=== PATIENT | female | born 1990 | race African-American/Black ===

== ENCOUNTER 2018-12-02 08:25 | Emergency (ER) | payer OTHER ==
[2018-12-02 08:34] VITALS: BP 124/76; PULSE 95; TEMP 98.6; BMI 22.1
[2018-12-02] MEDS ORDERED: CYCLOBENZAPRINE HCL 10 MG TABLET (FP) PO ONE (08:47)
[2018-12-02] MEDS ORDERED: CYCLOBENZAPRINE HCL 10 MG TABLET (FP) ONE (08:51)
--- NOTE | 2018-12-02 08:54 | PDOC ---
History of Present Illness - General Chief Complaint: Head/Neck problem Stated Complaint: Head/Neck problem Time Seen by Provider: 12/02/18 08:47 History Source: Patient Exam Limitations: No Limitations Past History - Past Medical History Allergies/Adverse Reactions: Allergies Allergy/AdvReac Type Severity Reaction Status Date / Time amoxicillin Allergy inflammatio Verified 12/02/18 08:50 n Home Medications: Ambulatory Orders Cyclobenzaprine HCl [Flexeril 10 mg] 10 mg PO TID PRN #15 tablet 12/02/18 COPD: No - Immunization History Immunization Up to Date: Yes - Suicide/Smoking/Psychosocial Hx Smoking History: Never smoked Information on smoking cessation initiated: No Hx Alcohol Use: No Drug/Substance Use Hx: No *Physical Exam - Vital Signs Last Vital Signs Temp Pulse Resp BP Pulse Ox 98.6 F 95 H 17 124/76 7 L 12/02/18 08:30 12/02/18 08:30 12/02/18 08:30 12/02/18 08:30 12/02/18 08:30 - Physical Exam General Appearance: No: Apparent Distress HEENT: positive: GLORIA Neck: positive: Other (neck tilted to the left, +muscle spasms, pain with turning neck laterally (to the right), no cspine TTP) Respiratory/Chest: positive: Lungs Clear, Normal Breath Sounds. negative: Respiratory Distress Cardiovascular: positive: Regular Rhythm, Regular Rate, S1, S2. negative: Murmur Gastrointestinal/Abdominal: positive: Normal Bowel Sounds, Soft. negative: Tender, Distended, Guarding, Rebound Neurologic: positive: cake puller II-XII NML intact, Fully Oriented, Alert, Normal Mood/ Affect, Motor Strength 5/5 Moderate Sedation - Procedure Monitoring Vital Signs: Procedure Monitoring Vital Signs Temperature 98.6 F 12/02/18 08:30 Pulse Rate 95 H 12/02/18 08:30 Respiratory Rate 17 12/02/18 08:30 Blood Pressure 124/76 12/02/18 08:30 O2 Sat by Pulse Oximetry (%) 7 L 12/02/18 08:30 Medical Decision Making - Medical Decision Making 28 y/o F hx of prolactinoma (has improved now) presents with waking up with neck pain yesterday morning with pain on turning neck to right. Denies trauma. Took 600 mg of Motrin yesterday and tried hot showers without much relief of symptoms. Took another 800 mg of Motrin today prior to coming in. Denies headache, sob, cp, n/v, visual/gait changes, numbness/tingling/weakness of extremities PE consistent with torticollis Patient given Flexeril 12/02/18 08:54 *DC/Admit/Observation/Transfer Diagnosis at time of Disposition: Torticollis - Discharge Dispostion Disposition: HOME Condition at time of disposition: Stable Decision to Admit order: No - Prescriptions Prescriptions: Cyclobenzaprine HCl [Flexeril 10 mg] 10 mg PO TID PRN #15 tablet PRN Reason: Muscle Spasms - Referrals - Patient Instructions Printed Discharge Instructions: DI for Torticollis Additional Instructions: Thank you for choosing [facility]. It was a pleasure taking care of you. You may take Motrin 600 mg every 4 hours by mouth as needed for mild to moderate pain. Take Motrin with food. You were also prescribed Flexeril, which is a muscle relaxer. This medication can also make you drowsy so please be cautious with driving or performing heavy physical work. Follow-up with your doctor in 2-3 days. Return to the Emergency Department if your symptoms worsen or persist or have other concerning symptoms. - Post Discharge Activity
== END 2018-12-02 09:08 | disposition home or self-care (01) ==
LOC: JERFT 08:25
DX: G24.3 Spasmodic torticollis (principal)
CPT/HCPCS: 99281-25

== ENCOUNTER 2019-01-28 09:37 | Emergency (ER) | payer OTHER ==
[2019-01-28 09:45] VITALS: TEMP 98.6; BMI 22.1
[2019-01-28] MEDS ORDERED: ACETAMINOPHEN 1000 MG/100 ML VIAL (NON FORMULARY) IVPB ONE (11:07)
[2019-01-28] MEDS ORDERED: SODIUM CHLORIDE 1,000 ML IV STA (11:08)
[2019-01-28 11:37] LABS: HCG,QUALITATIVE URINE Negative
[2019-01-28] MEDS ORDERED: ACETAMINOPHEN INJECTION 100 ML IVPB ONE (11:39)
[2019-01-28 11:49] LABS: EPI CELLS 1.4 /HPF (0-5); HYALINE CASTS 4 /hpf (0-8); PH,URINE 5.5 (5.0-8.0); URINE APPEARANCE CLOUDY; URINE BACTERIA 6155.9 /hpf (NEGATIVE); URINE BILIRUBIN NEGATIVE (NEGATIVE); URINE COLOR YELLOW; URINE GLUCOSE (UA) NEGATIVE (NEGATIVE); URINE KETONE NEGATIVE (NEGATIVE); URINE LEUK ESTERASE 3+ (NEGATIVE); URINE NITRITE POSITIVE (NEGATIVE); URINE PROTEIN 2+ (NEGATIVE); URINE RBC 104 /hpf (0-4); URINE UROBILINOGEN 0.2 mg/dL (0.2-1.0); URINE WBC 640 /hpf (0-5)
--- NOTE | 2019-01-28 11:59 | PDOC ---
History of Present Illness - General Chief Complaint: Pain Stated Complaint: BLOOD DISCHARGE Time Seen by Provider: 01/28/19 10:40 - History of Present Illness Initial Comments: 01/28/19 11:50 The patient is a 28 year old female, employee of the hospital, with a significant past medical history of prolactinoma (treated for 7 years with cabergoline, MRI January 2018 with no prolactinoma so cabergoline stopped), chiari malformation?, who presents to the emergency department with complaint of suproapubic abdominal pain after urination, hematuria since this morning as well as 1 month of dizzy spells and 1 week of discharge from bilateral nipples. She reports the discharge as milky. She states she has taken multiple tests which were negative as her period was late. She states she woke up today and after urinating clear yellow urine, developed sharp, burning lower midline abdominal pain. She also reports that a few moments after urinating, she felt wetness in her pants and noticed blood on the tissue when she wiped. She reportedly placed a tampon on her vagina for what she thought was her menstrual period, however, the tampon did not have blood when removed shortly. She reports her LMP as 12/11/18. She states she is usually very regular with her MPs. She also reports intermittent room spinning dizziness which she states occurs suddenly and resolves after a few minutes. She states she feels like she is not still during the dizzy spells. The resolve on their own. She reports a dizzy spell every few days for the last month. She denies any other symptoms. She reports having an appointment with Dr. Hill on Saturday. She states she was advised to have follow-up appointments with neurologist and drafter engineering every few months which she has not been compliant with. The patient denies chest pain, shortness of breath, headache. Denies focal weakness/numbness. Denies blurry vision or field cuts. The patient denies fever , chills, nausea, vomit, diarrhea and constipation. The patient denies frequency , urgency. Allergies: penicillins, amoxicillin Social history: Denies toxic habits Endo: Dr. Elena Hill Neuro: Dr. 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 No weakness. HEAD, EYES, EARS, NOSE AND THROAT: No change in vision. No ear pain or discharge. No sore throat. GASTROINTESTINAL: (+) lower abdominal pain. No nausea, vomiting, diarrhea or constipation. GENITOURINARY: (+) dysuria, hematuria, frequency, CARDIOVASCULAR: No chest pain or shortness of breath. RESPIRATORY: No cough, wheezing, or hemoptysis. MUSCULOSKELETAL: No joint or muscle swelling or pain. No neck or back pain. SKIN: No rash NEUROLOGIC: (+) dizziness. No headache, loss of consciousness, or change in strength/sensation. ENDOCRINE: (+) discharge from nipples. No increased thirst. No abnormal weight change. HEMATOLOGIC/LYMPHATIC: No anemia, easy bleeding, or history of blood clots. ALLERGIC/IMMUNOLOGIC: No hives or skin allergy." *Physical Exam - Vital Signs Last Vital Signs Temp Pulse Resp BP Pulse Ox 98.6 F 118 H 18 141/80 99 01/28/19 09:41 01/28/19 09:41 01/28/19 09:41 01/28/19 09:41 01/28/19 09:41 - Physical Exam Comments: 01/28/19 12:19 GENERAL: Awake, alert, and fully oriented, in no acute distress EYES: PERRLA, EOMI, sclera anicteric, conjunctiva clear. VFF ENT: Nares patent, oropharynx clear without exudates. Moist mucosa NECK: Normal ROM, supple, no lymphadenopathy, JVD, or masses LUNGS: Breath sounds equal, clear to auscultation bilaterally. No wheezes, and no crackles HEART: Regular rate and rhythm, normal S1 and S2, no murmurs, rubs or gallops. HR 94 BREAST: able to express white discharge from nipples b/l ABDOMEN: Soft, +suprapubic ttp, normoactive bowel sounds. No guarding, no rebound. No masses. No CVAT. EXTREMITIES: Normal range of motion, no edema. No cords, erythema, or tenderness BACK: No midline spinal tenderness in cervical/thoracic/lumbar region NEUROLOGICAL: Normal speech, cranial nerves intact, negative pronator drift, 5/ 5 strength in all 4 extremities, normal sensation to light touch in all 4 extremities, normal cerebellar exam, normal gait, normal tone SKIN: Warm, Dry, normal turgor, no rashes or lesions noted. ED Treatment Course - LABORATORY CBC & Chemistry Diagram: 01/28/19 12:08 01/28/19 11:05 - ADDITIONAL ORDERS Additional order review: Laboratory Results 01/28/19 11:10 Urine HCG, Qual Negative Medical Decision Making - Medical Decision Making 01/28/19 12:22 28yo F hx prolactinoma s/p treatment presents to the ED with multiple complaints. Initial vitals with tachycardia which self resolved on my evaluation , HR now 94. Remaining vitals wnl. Exam with suprapubic ttp, otherwise pt is neuro intact with no VF cut. With regards to hematuria, dysuria, suprapubic ttp, likely 2/2 cystitis + bladder spasm. Plan to check UA/Ucx With regards to dizzy spells, amenorrhea, nipple discharge, all highly concerning for recurrence of prolactinoma. Pt with no neuro deficits here. Case discussed with Dr. Ellis, pt does not need urgent w/u for recurrence. Will order CTH to r/o large mass. Dr. Hill has been called twice, awaiting call back also to discuss management. 01/28/19 15:13 CTH with unchanged encephalocele LAbs wnl UPT neg UA with UTI, pt treated with bactrim and pyridium, feels much better Case discussed with Dr. Hill who states pt can have outpt f/u for prolactinoma evaluation, she requests pt call office if she does not have appt and tell them she was in ED Pt has scheduled appt on this coming Saturday. Pt requesting to eat and go home SHe is very well appearing, exam stable Strict return precautions discussed with pt I discussed the physical exam findings, ancillary test results and final diagnoses with the patient. I answered all of the patient's questions. The patient was satisfied with the care received and felt comfortable with the discharge plan and treatment plan. The patient will call their primary care physician within 24 hours to arrange follow-up and will return to the Emergency Department with any new, persistent or worsening symptoms. *DC/Admit/Observation/Transfer Diagnosis at time of Disposition: Amenorrhea, Nipple discharge, Cystitis - Discharge Dispostion Disposition: HOME Condition at time of disposition: Improved Decision to Admit order: No - Referrals Referrals: Elena Hill MD [Staff Physician] - Ramakrishna Ellis MD [Staff Physician] - - Patient Instructions Printed Discharge Instructions: DI for Urinary Tract Infection (UTI) Additional Instructions: Follow up with Dr. Hill next Saturday as scheduled Follow up with Dr. Ellis within 1 week Take the antibiotics as prescribed Return to the emergency department if you have any new, worsening, or concerning symptoms - Post Discharge Activity - Attestations Physician Attestion: 01/28/19 15:22 I, Dr. Lily Chairez MD, attest that this document has been prepared under my direction and personally reviewed by me in its entirety. I further attest, that it accurately reflects all work, treatment, procedures and medical decision -making performed by me.
[2019-01-28] MEDS ORDERED: SULFAMETHOXAZOLE/TRIMETHOPRIM 800MG/160MG D.S. TABLET PO ONE (12:15)
[2019-01-28] MEDS ORDERED: PHENAZOPYRIDINE HCL 100 MG TABLET (FP) PO ONE (12:15)
[2019-01-28 12:20] LABS: BASO % 0.6 % (0-2.0); EOS % 0.4 % (0-4.5); HEMATOCRIT 35.3 % (32.4-45.2); HEMOGLOBIN 11.6 GM/dL (10.7-15.3); LYMPH % 18.1 % (8-40); MCH 27.8 pg (25.7-33.7); MCHC 32.9 g/dl (32.0-36.0); MEAN CELL VOLUME 84.5 fl (80-96); MEAN PLT VOLUME 8.1 fl (7.5-11.1); MONO % 10.7 % (3.8-10.2); NEUT % 70.2 % (42.8-82.8); PLATELET COUNT 354 K/MM3 (134-434); RBC 4.18 M/mm3 (3.60-5.2); RDW 14.3 % (11.6-15.6); WHITE BLOOD COUNT 8.3 K/mm3 (4.0-10.0)
[2019-01-28 12:46] LABS: ALBUMIN 3.7 g/dl (3.4-5.0); ALK PHOS 47 U/L (45-117); ANION GAP 7 MMOL/L (8-16); BILIRUBIN,TOTAL 0.4 mg/dL (0.2-1); BLOOD UREA NITROGEN 14 mg/dL (7-18); CHLORIDE 104 mmol/L (98-107); CO2 28 mmol/L (21-32); CREATININE 0.7 mg/dL (0.55-1.3); GLUCOSE,RANDOM 78 mg/dL (74-106); POTASSIUM 4.3 mmol/L (3.5-5.1); SGOT/AST 14 U/L (15-37); SGPT/ALT 17 U/L (13-61); SODIUM 139 mmol/L (136-145)
[2019-01-28] MEDS ORDERED: PHENAZOPYRIDINE HCL 100 MG TABLET (FP) ONE (13:11)
[2019-01-28] MEDS ORDERED: SULFAMETHOXAZOLE/TRIMETHOPRIM 800MG/160MG D.S. TABLET ONE (13:11)
[2019-01-28 16:09] VITALS: BP 113/64; PULSE 98
== END 2019-01-28 16:00 | disposition home or self-care (01) ==
LOC: JER 09:37
PROC: 3E033NZ Introduction of Analgesics, Hypnotics, Sedatives into Peripheral Vein, Percutaneous Approach (ICD-10-PCS; principal; 2019-01-28)
PROC: 3E0337Z Introduction of Electrolytic and Water Balance Substance into Peripheral Vein, Percutaneous Approach (ICD-10-PCS; 2019-01-28)
DX: N91.2 Amenorrhea, unspecified (principal); N30.91 Cystitis, unspecified with hematuria; N64.52 Nipple discharge
CPT/HCPCS: 36415; 70450-TC; 80053; 81003; 84703; 85025; 87086; 87186; 96361; 96374; 99282-25; J0131; J7030